=== PATIENT | male | born 1960 | race Two or more races ===

== ENCOUNTER 2020-10-29 12:09 | Emergency (ER) | payer OTHER ==
[~2020-10-29] VITALS: Ht 180.3 cm; Wt 121.6 kg
[2020-10-29] MEDS ORDERED: PROAIR HFA8.5 GM IH (12:29)
== END 2020-10-29 18:17 | disposition home or self-care (01) ==
LOC: ER 12:09
DX: K52.89 Other specified noninfective gastroenteritis and colitis (principal)

== ENCOUNTER 2023-10-04 12:28 | Emergency (ER) | payer OTHER ==
[~2023-10-04] VITALS: Ht 180.3 cm; Wt 129.3 kg
[~2023-10-04 12:28] MED LIST: PROAIR HFA8.5 GM IH
[2023-10-04 16:10] LABS: HEMATOCRIT 37.9 % (39.0-48.0); HEMOGLOBIN 13.2 g/dL (13-16.00); MEAN CELL VOLUME 90.8 fL (80.0-100.00); MEAN CORPUSCULAR HEMOGLOBIN 31.6 pg (27.00-32.0); MEAN CORPUSCULAR HGB CONC 34.8 g/dl (32.0-36.0); PLATELET COUNT 193 K/uL (150-450); RED BLOOD COUNT 4.17 M/uL (4.00-6.00)
[2023-10-04 16:30] LABS: PH,URINE 5.5 (5.0-8.0); URINE APPEARANCE Clear; URINE BILIRRUBIN Negative (NEGATIVE); URINE BLOOD Negative; URINE COLOR Yellow; URINE GLUCOSE Negative (NEGATIVE); URINE LEUKOCYTE Negative; URINE NITRATE Negative; URINE PROTEIN 30 (NEGATIVE)
[2023-10-04 16:30] LABS: CREATININE SERUM 0.92 mg/dL (0.70-1.30); GFR 83.36; POTASSIUM 3.62 mEq/L (3.5-5.1)
[2023-10-04 16:33] LABS: URINE BACTERIA 84.4 uL (0.0-1933); URINE EPITHELIAL CELLS 5.5 uL (0.0-38.8); URINE RBC 4.5 uL (0.0-20.8); URINE WBC 8.3 uL (0.0-23.2)
== END 2023-10-04 17:48 | disposition home or self-care (01) ==
LOC: ER 12:29
PROVIDERS: General Practice
DX: R10.9 Unspecified abdominal pain (principal); Z91.013 Allergy to seafood

== ENCOUNTER 2024-05-20 05:53 | Emergency (ER) | payer OTHER ==
[~2024-05-20] VITALS: Ht 180.3 cm; Wt 123.4 kg
[2024-05-20] MEDS ORDERED: RINGERS SOLUTION,LACTATED 1,000 ML IV STA (06:54)
[2024-05-20] MEDS ORDERED: MEPERIDINE HCL/PF 50 MG/ML VIAL IM STA (06:55)
[2024-05-20] MEDS ORDERED: PROMETHAZINE HCL 50 MG/ML AMPUL IM STA (06:56)
[2024-05-20] MEDS ORDERED: HYOSCYAMINE SULFATE 0.125 MG TAB.SUBL SL STA (06:56)
[2024-05-20] MEDS ORDERED: BARIUM SULFATE 450 ML ORAL.SUSP PO ONE (07:52)
[2024-05-20] MEDS ORDERED: HYOSCYAMINE SULFATE 0.125 MG TAB.SUBL ONE (07:52)
[2024-05-20 08:06] LABS: HEMATOCRIT 40.6 % (39.0-48.0); HEMOGLOBIN 13.9 g/dL (13-16.00); MEAN CELL VOLUME 92.2 fL (80.0-100.00); MEAN CORPUSCULAR HEMOGLOBIN 31.5 pg (27.00-32.0); MEAN CORPUSCULAR HGB CONC 34.2 g/dl (32.0-36.0); PLATELET COUNT 196 K/uL (150-450); RED BLOOD COUNT 4.41 M/uL (4.00-6.00); RED CELL DISTRIBUTION WIDTH 13.6 % (11.5-14.5)
[2024-05-20 08:15] LABS: INR 1.07; PARTIAL THROMBOPLASTIN TIME 34.7 SECONDS (22.0-34.0); PROTHROMBIN TIME 11.2 SECONDS (9.0-11.5)
[2024-05-20 08:17] LABS: BILIRUBIN TOTAL 0.6 mg/dL (0.3-1.2); CALCIUM 9.9 mg/dL (8.5-10.1); CREATININE SERUM 0.92 mg/dL (0.70-1.30); GFR 83.36; GLOBULINA 3.4 G/DL (2.4-3.5); POTASSIUM 3.8 mEq/L (3.5-5.1); TOTAL PROTEIN 7.4 gm/dL (6.4-8.2)
[2024-05-20 08:31] LABS: PH,URINE 5.5 (5.0-8.0); URINE APPEARANCE Clear; URINE BILIRRUBIN Negative (NEGATIVE); URINE BLOOD Negative; URINE COLOR Dark Yellow; URINE GLUCOSE Negative (NEGATIVE); URINE LEUKOCYTE Negative; URINE NITRATE Negative
[2024-05-20 08:32] LABS: URINE EPITHELIAL CELLS 13.1 uL (0.0-38.8); URINE RBC 10.3 uL (0.0-20.8); URINE WBC 9.8 uL (0.0-23.2)
[2024-05-20 08:39] LABS: URINE PROTEIN 100 (NEGATIVE)
== END 2024-05-20 12:09 | disposition home or self-care (01) ==
LOC: ER 05:55
DX: K57.32 Diverticulitis of large intestine without perforation or abscess without bleeding (principal); R10.32 Left lower quadrant pain; Z91.013 Allergy to seafood

== ENCOUNTER 2025-04-04 07:32 | Emergency (ER) | payer OTHER ==
[~2025-04-04] VITALS: Ht 180.3 cm; Wt 123.4 kg
[2025-04-04] MEDS ORDERED: RINGERS SOLUTION,LACTATED 1,000 ML IV STA (08:34)
[2025-04-04] MEDS ORDERED: PIPERACILLIN/TAZOBACTAM SODIUM 3.375 GM VIAL IV STA (08:35)
[2025-04-04] MEDS ORDERED: PIPERACILLIN/TAZOBACTAM SODIUM 3.375 GM VIAL IV ONE (08:40)
[2025-04-04 09:26] LABS: BASO % 0.7 % (0.1-1.2); EOS # 0.25 (0.04-0.54); EOS % 2.9 % (0.7-7.0); HEMATOCRIT 36.6 % (40.1-51.0); HEMOGLOBIN 12.4 g/dL (13.7-17.5); LYMPH # 1.75 (1.18-3.74); LYMPH % 20.3 % (19.3-53.1); MEAN CORPUSCULAR HEMOGLOBIN 29.8 pg (25.6-32.2); MONO # 0.88 (0.24-0.82); MONO % 10.2 % (4.7-12.5); NEUT # 5.65 (1.56-6.13); NEUT % 65.7 % (34.0-71.1); PLATELET COUNT 166 K/uL (163-369); RED BLOOD COUNT 4.16 M/uL (4.63-6.08); RED CELL DISTRIBUTION WIDTH 13.3 % (11.6-14.4)
[2025-04-04 10:16] LABS: COVID-19 AG NEGATIVE (NEGATIVE); INFLUENZA A AG NEGATIVE (NEGATIVE); INFLUENZA B AG NEGATIVE (NEGATIVE)
[2025-04-04 11:43] LABS: URINE APPEARANCE Clear; URINE BILIRRUBIN Negative (NEGATIVE); URINE BLOOD Negative; URINE COLOR Yellow; URINE GLUCOSE Negative (NEGATIVE); URINE KETONE Negative (NEGATIVE); URINE LEUKOCYTE Negative; URINE NITRATE Negative; URINE PROTEIN 30 (NEGATIVE); URINE UROBILINOGEN 0.2 E.U./dl
[2025-04-04 11:47] LABS: URINE BACTERIA 14.6 uL (0.0-1933); URINE EPITHELIAL CELLS 3.7 uL (0.0-38.8); URINE RBC 3.3 uL (0.0-20.8); URINE WBC 2.3 uL (0.0-23.2)
[2025-04-04 12:01] LABS: URINE CAST 0.14 uL (0.0-1.40)
[2025-04-04 12:25] LABS: CALCIUM 9.6 mg/dL (8.5-10.1); CREATININE SERUM 0.98 mg/dL (0.70-1.30); GFR 77.25; POTASSIUM 3.67 mEq/L (3.5-5.1)
== END 2025-04-04 11:22 | disposition home or self-care (01) ==
LOC: ER 07:32
PROVIDERS: General Practice
DX: K57.32 Diverticulitis of large intestine without perforation or abscess without bleeding (principal); R10.9 Unspecified abdominal pain; Z20.822 Contact with and (suspected) exposure to COVID-19; Z91.013 Allergy to seafood